=== PATIENT | female | born 1935 | race Caucasian/White ===

== ENCOUNTER 2020-01-06 18:28 | Emergency (ER) | payer OTHER ==
[~2020-01-06] VITALS: Ht 172.7 cm; Wt 90.7 kg
[2020-01-07] MEDS ORDERED: SODIUM CHLORIDE 0.9% 1,000 ML IV ONE ×2 (00:15→05:00)
[2020-01-07 00:47] LABS: Basophils # (auto) 0 10 ^3/uL (0-0.2); Basophils % (auto) 0.2 % (0.0-2.0); Eosinophils # (auto) 0 10 ^3/uL (0-0.8); Eosinophils % (auto) 0.5 % (0.0-7.0); Hematocrit 31.7 % (36.0-46.0); Hemoglobin 10.1 g/dL (12.2-16.2); Lymphocytes # (auto) 0.6 10 ^3/uL (0.4-5.4); Lymphocytes % (auto) 9.8 % (10.0-50.0); Mean Corpuscular Hemoglobin 28.7 pg (28.0-32.0); Mean Corpuscular Hgb Conc. 31.9 g/dL (32.0-36.0); Monocytes # (auto) 0.5 10 ^3/uL (0-1.3); Monocytes % (auto) 8.6 % (0.0-12.0); Neutrophils % (auto) 80.9 % (37.0-80.0); Platelet Count (auto) 154 10^3/uL (140-450); Red Blood Cells 3.53 10^6/uL (4.0-5.20); Red Cell Distribution Width 17.4 % (11.8-14.3); White Blood Cell 6.2 10^3/uL (4.4-10.8)
[2020-01-07 01:00] LABS: INR 1.18 (0.9-1.15); Partial Thromboplastin Time 33.6 sec (23.64-32.05)
[2020-01-07 01:02] LABS: Anion Gap 8 (5-15); Blood Urea Nitrogen 57 mg/dL (7-18); Calcium 8.7 mg/dL (8.5-10.1); Carbon Dioxide 25 mmol/L (21-32); Chloride 102 mmol/L (98-107); GFR African American 28 mL/min; GFR Non-African American 23 mL/min; Glucose 215 mg/dL (74-106); Magnesium 1.6 mg/dL (1.6-2.6); Potassium 5.3 mmol/L (3.5-5.1); Sodium 135 mmol/L (136-145)
[2020-01-07 01:15] LABS: Alanine Aminotransferase 21 U/L (13-56); Alkaline Phosphatase 106 U/L (45-117); Aspartate Aminotransferase 21 U/L (15-37); Bilirubin, Total 0.4 mg/dL (0.2-1.0); Total Protein 7.6 g/dL (6.4-8.2)
[2020-01-07] MEDS ORDERED: ACETAMINOPHEN 500 MG TAB PO ONE (08:00)
[2020-01-07] MEDS ORDERED: HYDROcodone-ACET 5/325MG TAB PO ONE (08:00)
[2020-01-07] MEDS ORDERED: AZITHROMYCIN 250 MG TAB PO ONE (12:45)
[2020-01-07 21:00] VITALS: BP 137/66
== END 2020-01-07 21:25 | disposition home or self-care (01) ==
LOC: EDBD 18:28 → EDUNIT# 18:28 → ER 18:31
DX: U07.1 COVID-19 (principal); R56.9 Unspecified convulsions; E86.0 Dehydration; N17.9 Acute kidney failure, unspecified; J44.9 Chronic obstructive pulmonary disease, unspecified; E11.9 Type 2 diabetes mellitus without complications; I10 Essential (primary) hypertension
CPT/HCPCS: 36415; 70450; 71045; 80053; 82962; 83605; 83735; 83880; 84484; 85025; 85379; 85610; 85730; 87040; 87070; 87804; 87880; 93005; 96360; 96361; 99285; C9803; J7030; U0003